=== PATIENT | female | born 1960 | race Two or more races ===

== ENCOUNTER 2020-07-19 10:04 | Outpatient (CLI) | payer OTHER | END 2020-07-19 23:59 | disposition home or self-care (01) | LOC: LAB 10:04 | PROVIDERS: ATTEND Specialist | DX: Z01.812 Encounter for preprocedural laboratory examination (principal); Z20.828 Contact with and (suspected) exposure to other viral communicable diseases | CPT/HCPCS: 87426; C9803; U0003 ==

== ENCOUNTER 2020-07-25 05:16 | Inpatient (IN) | payer OTHER ==
[~2020-07-25] VITALS: Ht 162.6 cm; Wt 81.6 kg
[2020-07-25] MEDS ORDERED: ANESTHESIA TRAY IN PYXIS 1 EA TRAY MC ONE (05:55)
[2020-07-25] MEDS ORDERED: BACITRACIN 50000 UNITS/VIAL ONE (05:55)
[2020-07-25] MEDS ORDERED: BUPIVACAINE 0.5 % PF 150 MG/30 ML VIAL ONE (05:55)
[2020-07-25] MEDS ORDERED: SCOPOLAMINE PATCH 1 MG/72HR TD ONE (06:13)
[2020-07-25] MEDS ORDERED: FENTANYL PF 100MCG/2ML AMPUL ONE ×2 (06:13→08:53)
[2020-07-25] MEDS ORDERED: SEVOFLURANE 250 ML BOTTLE IH ONE (06:14)
[2020-07-25] MEDS ORDERED: BUPIVACAINE MPF W/EPI 0.25% 30 ML VIAL ONE (06:14)
[2020-07-25] MEDS ORDERED: KETAMINE HCL (500MG/10ML) 50 MG/ML VIAL ONE (06:57)
[2020-07-25] MEDS ORDERED: TRANEXAMIC ACID 3,000 MG in SODIUM CHLORIDE IRRIG SOLUTION 70 ML IR ONE (07:00)
[2020-07-25 08:00] VITALS: BP 141/70
[2020-07-25] MEDS ORDERED: SUCCINYLCHOLINE CHLORIDE 20 MG/ML VIAL ONE (08:27)
[2020-07-25] MEDS ORDERED: HYDROMORPHONE 1 MG/1 ML DISP.SYRIN SQ PRN (10:00)
[2020-07-25] MEDS ORDERED: HYDROMORPHONE 1 MG/1 ML DISP.SYRIN IV PRN ×2 (10:00→16:00)
[2020-07-25] MEDS ORDERED: HYDROCODONE/APAP 5/325MG TABLET PO PRN (10:00)
[2020-07-25] MEDS ORDERED: CLONIDINE HCL 0.1 MG TABLET PO PRN (10:00)
[2020-07-25] MEDS ORDERED: oxyCODONE IR immediate release 5 MG PO PRN (10:00)
[2020-07-25] MEDS ORDERED: NALOXONE HCL 0.4 MG/ML AMPUL IV PRN (10:00)
[2020-07-25] MEDS ORDERED: diphenhydrAMINE HCL 25 MG CAPSULE PO PRN (10:00)
[2020-07-25] MEDS ORDERED: MENTHOL/CETYLPYRD (CEPACOL) 1 LOZ LOZENGE MM PRN (10:00)
[2020-07-25] MEDS ORDERED: MAG HYDROX/AL HYDROX/SIMETH 30 ML UDC PO PRN (10:00)
[2020-07-25] MEDS ORDERED: MAGNESIUM HYDROXIDE 30 ML UDC PO PRN (10:00)
[2020-07-25] MEDS ORDERED: ONDANSETRON HCL/PF 4 MG/2 ML VIAL IVP PRN (10:00)
[2020-07-25] MEDS ORDERED: IV D5/0.45 NACL 1,000 ML IV PRN (10:30)
[2020-07-25] MEDS ORDERED: SENNOSIDES 8.6 MG TABLET PO PRN (10:30)
[2020-07-25] MEDS ORDERED: BISACODYL SUPP (10 MG) 10 MG/SUPP.RECT SUPP.RECT RC PRN (10:30)
[2020-07-25] MEDS ORDERED: ACETAMINOPHEN 325 MG TABLET PO PRN (11:00)
--- NOTE | 2020-07-25 12:04 | NUR ---
MS RN RECEIVING NOTES PATIENT TRANSFERRED FROM OR; POST L KNEE ARTHROPLASTY. PATIENT MEDICALLY STABLE; VITAL SIGNS WITHIN NORMAL LIMITS. WILL CONTINUE TO MONITOR PATIENT.
[2020-07-25] MEDS ORDERED: IRBE150T28 PO (12:26)
[2020-07-25] MEDS ORDERED: LORA10TA7 PO (12:26)
[2020-07-25] MEDS: ANCEF 1 GM/50 ML D5W IV SCH ×4 (15:00→22:54)
[2020-07-25] MEDS: HYDROMORPHONE 1 MG/1 ML DISP.SYRIN SQ PRN ×2 (15:32→23:13)
[2020-07-25 16:04] VITALS: BP 145/83
[2020-07-25] MEDS: DOCUSATE SODIUM 100 MG CAPSULE PO SCH (18:09)
--- NOTE | 2020-07-25 19:28 | NUR ---
MS RN CLOSING NOTES PATIENT RESTING IN BED, AWAKE, A/O X4. PATIENT ON ROOM AIR AND O2 INTERCHANGEABLY; BREATHING EVEN AND UNLABORED; NO SOB NOTED; SATURATING AT 99%. RAC G #20 PRESENT AND INTACT INFUSING D5 1/2 NS @ 125 MLS/HR. PAIN TREATED WITH PRN PAIN MEDICATION PER MD ORDER. SAFETY PRECAUTIONS REMAIN IN PLACE; BED IN LOW POSITION AND LOCKED, RAILS UP X2, CALL LIGHT WITHIN REACH. WILL ENDORSE TO PRINTED CIRCUIT DESIGNER NURSE.
[2020-07-25 20:00] VITALS: BP 148/88
--- NOTE | 2020-07-25 20:00 | NUR ---
OPENING NOTE: Patient in bed resting comfortably, AOX4, able to make needs known. Patient breathing even and unlabored, no SOB or acute respiratory distress noted. Safety measure in place, bed is in the lowest level, bed is locked, alarm is on, side rails x2 are up, and call light is within reach. Will continue to monitor.
[2020-07-25] MEDS: FAMOTIDINE (20 MG) 20 MG TABLET PO SCH (20:09)
[2020-07-25] MEDS: oxyCODONE IR immediate release 5 MG PO PRN (20:10)
--- NOTE | 2020-07-25 20:10 | NUR ---
Administered Oxy IR per MD order.
[2020-07-25] MEDS ORDERED: ZOLPIDEM TARTRATE 5 MG TABLET PO PRN (22:00)
--- NOTE | 2020-07-25 23:13 | NUR ---
Patient complains of left knee pain. Patient rates pain an 8 and describes it as aching. Administered PRN Dilaudid per MD order. Will continue to monitor.
[2020-07-26] MEDS: HYDROMORPHONE 1 MG/1 ML DISP.SYRIN SQ PRN ×4 (04:08→22:06)
[2020-07-26 07:58] LABS: HEMOGLOBIN 12.4 g/dL (11.5-14.8)
[2020-07-26 08:00] VITALS: BP_SYST 155; BP_DIAS 96; BP_DIAS 97
[2020-07-26] MEDS: FAMOTIDINE (20 MG) 20 MG TABLET PO SCH ×2 (08:36→20:09)
--- NOTE | 2020-07-26 08:36 | NUR ---
Per Dr. Bansal, restart two home meds. Endorsed to AM nurse.
[2020-07-26] MEDS: ASPIRIN EC 325 MG TABLET.DR PO SCH (08:37)
[2020-07-26] MEDS: LORATADINE 10 MG TABLET PO SCH (08:37)
[2020-07-26] MEDS: DOCUSATE SODIUM 100 MG CAPSULE PO SCH ×2 (08:37→17:08)
--- NOTE | 2020-07-26 08:48 | NUR ---
RN CLOSING NOTE: Patient in bed resting comfortably. Patient breathing even and unlabored, no SOB or acute respiratory distress noted. Safety measure maintained, bed is in the lowest level, bed is locked, alarm is on, side rails x2 are up, and call light is within reach. Endorsed continuity of care to AM nurse.
[2020-07-26] MEDS: oxyCODONE IR immediate release 5 MG PO PRN ×3 (12:24→20:09)
[2020-07-26 16:00] VITALS: BP 160/94
--- NOTE | 2020-07-26 16:18 | NUR ---
MS/RN S/B Ortho Seen by ortho - first dressing change scheduled for tomorrow. Weight bearing as tolerated on left lower extremity.
--- NOTE | 2020-07-26 19:45 | NUR ---
MS RN OPENING NOTES PATIENT AWAKE IN BED. A/OX4. ON RA; NO C/O SOB; BREATHING IS EVEN AND UNLABORED. NO C/O PAIN AT THIS TIME. LEFT KNEE ON CPM DEVICE; SURGICAL DRESSING DRY AND INTACT. IV PRESENT ON RIGHT HAND, SIZE 20, INTACT & PATENT, HEP LOCKED. SAFETY MEASURES IN PLACE AND PATIENT'S NEEDS MET. BED LOCKED, SIDE RAILS X2, CALL LIGHT WITHIN REACH. WILL CONTINUE TO MONITOR.
[2020-07-26 20:00] VITALS: BP 159/88
[2020-07-27 01:53] VITALS: BP 148/97
[2020-07-27] MEDS: HYDROMORPHONE 1 MG/1 ML DISP.SYRIN SQ PRN ×2 (01:53→10:54)
--- NOTE | 2020-07-27 07:20 | NUR ---
MS RN CLOSING NOTES PATIENT AWAKE IN BED. NO C/O SOB OR PAIN AT THIS TIME. LEFT KNEE SURGICAL DRESSING DRY AND INTACT. SAFETY MEASURES IN PLACE AND PATIENT'S NEEDS MET. ENDORSED TO DAY SHIFT RN PLAN OF CARE.
[2020-07-27 08:00] VITALS: BP 151/92
[2020-07-27] MEDS: DOCUSATE SODIUM 100 MG CAPSULE PO SCH ×2 (09:01→17:40)
[2020-07-27] MEDS: FAMOTIDINE (20 MG) 20 MG TABLET PO SCH (09:02)
[2020-07-27] MEDS: LORATADINE 10 MG TABLET PO SCH (09:02)
[2020-07-27] MEDS: ASPIRIN EC 325 MG TABLET.DR PO SCH (09:02)
--- NOTE | 2020-07-27 09:20 | NUR ---
ms rn received on bed, awakelaert,oriented x4,not in any form of distress,respirations even and unlabored,no sob noted,denies pain at this time,all needs attended.
--- NOTE | 2020-07-27 12:00 | NUR ---
ms rn was seen by pt at this time,tolerated well.
[2020-07-27 16:00] VITALS: BP 131/84
--- NOTE | 2020-07-27 18:00 | NUR ---
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
== END 2020-07-27 18:40 | disposition home or self-care (01) | DRG 470 ==
LOC: DS 05:16 → MED 11:00
PROVIDERS: ADMIT Specialist; ATTEND Specialist
PROC: 0SRD0J9 Replacement of Left Knee Joint with Synthetic Substitute, Cemented, Open Approach (ICD-10-PCS; principal; 2020-07-25)
DX: M17.12 Unilateral primary osteoarthritis, left knee (principal); I10 Essential (primary) hypertension; J30.2 Other seasonal allergic rhinitis; M22.42 Chondromalacia patellae, left knee
CPT/HCPCS: 36415; 85027-TC; 87081-TC; 97112-TC; 97116-TC; 97530-TC; 97760-TC; A4217; C1713; C1776; G0378; J0330; J0690; J1100; J1170; J2405; J2704; J3010; J3490; J7060; L1830; Q0163